=== PATIENT | male | born 1975 | race Caucasian/White ===

== ENCOUNTER 2016-08-01 15:45 | Emergency (ER) | payer MEDICAID ==
[2016-08-01 15:53] VITALS: BP 143/85
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
== END 2016-08-01 18:52 | disposition home or self-care (01) ==
LOC: ER 15:45
DX: S50.12XA Contusion of left forearm, initial encounter (principal); W20.8XXA Other cause of strike by thrown, projected or falling object, initial encounter; R03.0 Elevated blood-pressure reading, without diagnosis of hypertension
CPT/HCPCS: 99283

== ENCOUNTER 2019-11-24 23:34 | Emergency (ER) | payer SELFPAY ==
[2019-11-25 00:04] LABS: ABSOLUTE EOSINOPHILS # (AUTO) 0.3 10^3/uL (0.0-0.6); ABSOLUTE LYMPHOCYTES (AUTO) 2.5 10^3/uL (0.5-4.7); ABSOLUTE MONOCYTES (AUTO) 0.8 10^3/uL (0.1-1.4); BASOPHILS % (AUTO) 0.3 % (0-2); EOSINOPHILS % (AUTO) 2.2 % (0-6); HEMATOCRIT 42.8 % (37.9-51.0); HEMOGLOBIN 14.6 g/dL (13.5-17.0); LYMPHOCYTES % (AUTO) 20.2 % (13-45); MEAN CORPUSCULAR HEMOGLOBIN 31.2 pg (27.0-33.4); MEAN CORPUSCULAR HGB CONC 34.1 g/dL (32.0-36.0); MEAN CORPUSCULAR VOLUME 92 fl (80-97); PLATELET COUNT 201 10^3/uL (150-450); RED BLOOD COUNT 4.67 10^6/uL (4.35-5.55); RED CELL DISTRIBUTION WIDTH 13.6 % (11.5-14.0); SEGMENTED NEUTROPHILS % (AUTO) 71.3 % (42-78); TOTAL CELLS COUNTED % (AUTO) 100 %; WHITE BLOOD COUNT 12.6 10^3/uL (4.0-10.5)
--- NOTE | 2019-11-25 00:11 | ER Document Report ---
ED General - General Chief Complaint: Overdose Stated Complaint: PT INGESTED HEROIN Time Seen by Provider: 11/25/19 00:08 Mode of Arrival: Ambulatory Information source: Patient Notes: 44-year-old male arrives by EMS after decreased LOC and saturation in the 80s. Patient was given Narcan SHOT FIREMAN by EMS. Patient now doing well and asking for water. 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 Patient rides motorcycles for relaxation. 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 He does admit to using heroin and did so tonight. He reports this was something he periodically is known for. Patient now is doing well after the Narcan and has no problems swallowing breathing thinking. He moves all extremities well. He denies any fever chills cough or cold coronavirus exposure. TRAVEL OUTSIDE OF THE [place] IN LAST 30 DAYS: No - HPI Onset: Just prior to arrival Onset/Duration: Sudden, Better Quality of pain: No pain Severity: None Pain Level: Denies Associated symptoms: None Exacerbated by: Denies Relieved by: Denies Similar symptoms previously: Yes Recently seen / treated by doctor: No - Related Data Allergies/Adverse Reactions: No Known Allergies Allergy (Verified 11/24/19 23:49) Past Medical History - General Information source: Patient, Emergency Med Personnel - Social History Smoking Status: Current Every Day Smoker Cigarette use (# per day): Yes Chew tobacco use (# tins/day): No Smoking Education Provided: Yes Frequency of alcohol use: None Drug Abuse: Heroin, Marijuana Lives with: Family Family History: None, Reviewed & Not Pertinent Patient has suicidal ideation: No Patient has homicidal ideation: No Renal/ Medical History: Denies: Hx Peritoneal Dialysis Past Surgical History: Reports: Hx Orthopedic Surgery - L rotator cuff shoulder - Immunizations Immunizations up to date: No - tetanus ordered Hx Diphtheria, Pertussis, Tetanus Vaccination: No Review of Systems - Review of Systems Constitutional: See HPI, Weakness EENT: No symptoms reported Cardiovascular: No symptoms reported Respiratory: No symptoms reported Gastrointestinal: No symptoms reported Genitourinary: No symptoms reported Male Genitourinary: No symptoms reported Musculoskeletal: No symptoms reported Skin: No symptoms reported Hematologic/Lymphatic: No symptoms reported Neurological/Psychological: No symptoms reported Physical Exam - Vital signs Vitals: Temp Resp BP Pulse Ox 97.4 F 11 L 137/91 H 92 11/24/19 23:39 11/24/19 23:39 11/24/19 23:39 11/24/19 23:39 Interpretation: Normal - General General appearance: Appears well - HEENT Head: Normocephalic - ., Atraumatic Eyes: Normal Pupils: PERRL Mouth/Lips: Normal Mucous membranes: Normal Pharynx: Normal Neck: Normal - Respiratory Respiratory status: No respiratory distress Chest status: Nontender Breath sounds: Normal Chest palpation: Normal - Cardiovascular Rhythm: Regular Heart sounds: Normal auscultation Murmur: No - Abdominal Inspection: Normal Distension: No distension Bowel sounds: Normal Tenderness: Nontender Organomegaly: No organomegaly - Rectal Prostate: Other - deferred - Genitourinary Scrotum: Other - deferrred - Back Back: Normal - Extremities General upper extremity: Normal inspection General lower extremity: Normal inspection - Neurological Neuro grossly intact: Yes Cognition: Normal Orientation: AAOx4 Rafi Coma Scale Eye Opening: Spontaneous Rafi Coma Scale Verbal: Oriented [place] Coma Scale Motor: Obeys Commands [place] Coma Scale Total: 15 Speech: Normal Motor strength normal: LUE, RUE, LLE, RLE Sensory: Normal - Psychological Associated symptoms: Normal affect - Skin Skin Temperature: Warm Skin Moisture: Dry - Which 1 was in the had abscesses or culture: Auto Air Conditioning Installer had a finished Course - Vital Signs Vital signs: Temp Pulse Resp BP Pulse Ox 98.9 F 94 18 154/82 H 95 11/25/19 06:35 11/25/19 06:35 11/25/19 06:35 11/25/19 06:35 11/25/19 06:35 - Laboratory Result Diagrams: 11/24/19 23:43 11/24/19 23:43 Laboratory results interpreted by me: 11/24/19 11/24/19 23:43 23:43 WBC 12.6 H Absolute Neuts (auto) 9.0 H Carbon Dioxide 31 H Glucose 120 H Critical Care Note - Critical Care Note Comments: Patient now doing well after Narcan after doing heroin tonight. Discharge - Discharge Clinical Impression: Heroin overdose Qualifiers: Encounter type: initial encounter Injury intent: accidental or unintentional Qualified Code(s): T40.1X1A - Poisoning by heroin, accidental (unintentional), initial encounter Condition: Good Disposition: HOME, SELF-CARE Additional Instructions: Follow-up with personal doctor try to avoid any mind altering medications like heroin. Also try to quit smoking if possible. Return to ER as needed. Encourage fluids
[2019-11-25 00:21] LABS: ALKALINE PHOSPHATASE 81 U/L (38-126); ASPARTATE AMINO TRANSFERASE 28 U/L (17-59); BILIRUBIN,TOTAL 0.3 mg/dL (0.2-1.3); BLOOD UREA NITROGEN 17 mg/dL (7-20); CALCIUM 9.1 mg/dL (8.4-10.2); CARBON DIOXIDE 31 mmol/L (22-30); CHLORIDE 103 mmol/L (98-107); GLUCOSE 120 mg/dL (75-110); POTASSIUM 4.6 mmol/L (3.6-5.0); TOTAL PROTEIN 6.7 g/dL (6.3-8.2)
[2019-11-25 00:28] LABS: ANION GAP 5 (5-19)
[2019-11-25 06:45] VITALS: BP 187/99
== END 2019-11-25 06:45 | disposition home or self-care (01) ==
LOC: ER 23:34
DX: T40.1X1A Poisoning by heroin, accidental (unintentional), initial encounter (principal); F17.210 Nicotine dependence, cigarettes, uncomplicated; R53.1 Weakness
CPT/HCPCS: 36415; 80053; 85025; 99284

== ENCOUNTER 2019-12-23 12:42 | Emergency (ER) | payer OTHER ==
[2019-12-23 12:50] VITALS: BP 127/74
[2019-12-23] MEDS ORDERED: DIPH/PERTUSS(ACELL)/TETANUS VAC/PF 0.5 ML SYR (>=10YO) IM ONE (12:58)
[2019-12-23] MEDS ORDERED: HYDROCODONE/ACETAMINOPHEN 5-325 MG TABLET PO ONE (13:00)
--- NOTE | 2019-12-23 13:06 | ER Document Report ---
ED Medical Screen (RME) - General Stated Complaint: FINGER LACERATION Time Seen by Provider: 12/23/19 12:54 TRAVEL OUTSIDE OF THE [place] IN LAST 30 DAYS: No - HPI Notes: 12/23/19 12:59 44-year-old male presents emergency room for evaluation to laceration to his right second and third finger after he cut himself on a metal measuring tape as it slipped back and cut his skin. Unsure of his last tetanus. Bleeding is somewhat controlled. Reports tenderness with flexion extension of his fingers. Denies any fevers or chills. Worse with movement, better at rest. States he applied direct pressure with some relief. Denies any prior injury to his fingers. No [id number]-fmb-[id number] medications have been tried I have greeted and performed a rapid initial assessment of this patient. A comprehensive ED assessment and evaluation of the patient, analysis of test results and completion of the medical decision making process will be conducted by additional ED providers. PHYSICAL EXAMINATION: GENERAL: Well-appearing, well-nourished and in no acute distress. SKIN: Warm, Dry, normal turgor, no rashes or lesions noted. Right volar aspect of third phalange with laceration over PIP and a "V", right volar aspect of second finger with an irregular laceration to the dorsal aspect. Account Resolution Specialist +2 bilaterally, equally. Cap refill less than 3 seconds - Related Data Allergies/Adverse Reactions: No Known Allergies Allergy (Verified 12/23/19 12:55) Past Medical History Renal/ Medical History: Denies: Hx Peritoneal Dialysis Past Surgical History: Reports: Hx Orthopedic Surgery - L rotator cuff shoulder - Immunizations Immunizations up to date: No - tetanus ordered Hx Diphtheria, Pertussis, Tetanus Vaccination: No Physical Exam - Vital signs Vitals: Temp Pulse Resp BP Pulse Ox 98.7 F 74 18 127/74 H 96 12/23/19 12:48 12/23/19 12:48 12/23/19 12:48 12/23/19 12:48 12/23/19 12:48 Course - Vital Signs Vital signs: Temp Pulse Resp BP Pulse Ox 98.7 F 74 18 127/74 H 96 12/23/19 12:48 12/23/19 12:48 12/23/19 12:48 12/23/19 12:48 12/23/19 12:48
--- NOTE | 2019-12-23 13:24 | RADIOLOGY REPORT (SQ) ---
EXAM DESCRIPTION: HAND RIGHT 3 VIEWS IMAGES COMPLETED DATE/TIME: 12/23/2019 1:12 pm REASON FOR STUDY: lac to 2nd and 3rd finger COMPARISON: None. EXAM PARAMETERS: NUMBER OF VIEWS: Three views. TECHNIQUE: AP, lateral and oblique radiographic images acquired of the right hand. LIMITATIONS: None. FINDINGS: MINERALIZATION: Normal. BONES: No acute fracture or dislocation. JOINTS: No effusions. SOFT TISSUES: No soft tissue swelling or radiopaque foreign body. OTHER: No other finding. IMPRESSION: No acute osseous abnormality of the right hand. TECHNICAL DOCUMENTATION: JOB ID: [id number] [employer]- All Rights Reserved Reading location - IP/workstation name: [email or web address]
[2019-12-23] MEDS ORDERED: LIDOCAINE 1% INJ-PF (10 MG/ML) 30 ML SDV ONE (14:46)
--- NOTE | 2019-12-23 14:51 | ER Document Report ---
HPI - HPI Time Seen by Provider: 12/23/19 12:54 Pain Level: 3 Notes: 44-year-old male patient presents emergency department chief complaint of laceration to his second and third fingers on the right hand. He states this occurred just prior to arrival when handling a metal tape measure. He is unsure when his last tetanus shot was. There is no active bleeding at the time of my initial evaluation. He has normal sensation, range of motion and strength. - ROS Systems Reviewed and Negative: Yes All other systems reviewed and negative - CONSTITUTIONAL Constitutional: DENIES: Fever, Chills - REPRODUCTIVE Reproductive: DENIES: : - DERM Skin Problems: Laceration Past Medical History - General Information source: Patient - Social History Smoking Status: Current Every Day Smoker Chew tobacco use (# tins/day): No Frequency of alcohol use: None Drug Abuse: None Family History: None, Reviewed & Not Pertinent Patient has homicidal ideation: No - Medical History Medical History: Negative Renal/ Medical History: Denies: Hx Peritoneal Dialysis Past Surgical History: Reports: Hx Abdominal Surgery - left inquinal hernia, Hx Nose Surgery - deviated septum, Hx Orthopedic Surgery - L rotator cuff shoulder - Immunizations Immunizations up to date: No - tetanus ordered Hx Diphtheria, Pertussis, Tetanus Vaccination: No Vertical Provider Document - CONSTITUTIONAL Notes: PHYSICAL EXAMINATION: GENERAL: Well-appearing, well-nourished and in no acute distress. HEAD: Atraumatic, normocephalic. EYES: Pupils equal round extraocular movements intact, conjunctiva are normal. ENT: Nares patent NECK: Normal range of motion LUNGS: No respiratory distress Musculoskeletal: Normal range of motion NEUROLOGICAL: Normal speech, normal gait. PSYCH: Normal mood, normal affect. SKIN: 2 lacerations noted to patient's right fingers. Laceration #1 is located on the volar aspect of the third phalange with a 1 cm laceration over the PIP. Laceration #2 is located to the right second phalange on the dorsal aspect, this also measures 1 cm. - INFECTION CONTROL TRAVEL OUTSIDE OF THE [place] IN LAST 30 DAYS: No Course - Re-evaluation Re-evalutation: Lacerations repaired under sterile technique, patient tolerated well. Tetanus updated. Patient will be started on antibiotics to prevent infection. ED return precautions discussed, patient verbalized understanding and agreement with plan. - Vital Signs Vital signs: Temp Pulse Resp BP Pulse Ox 98.7 F 74 18 127/74 H 96 12/23/19 12:48 12/23/19 12:48 12/23/19 12:48 12/23/19 12:48 12/23/19 12:48 Procedures - Laceration/Wound Repair Right 3rd digit Wound length (cm): 1 Wound's Depth, Shape: Superficial Laceration pre-procedure: Sterile PPE donned Anesthetic type: 1% Lidocaine Wound Repaired With: Sutures Suture Size/Type: 5:0, 4:0 Number of Sutures: 2 Post-procedure wound care: Sterile dressing applied, Splint applied Post-procedure NV exam normal: Yes Complications: No Right 2nd digit Wound length (cm): 1 Wound's Depth, Shape: Superficial Laceration pre-procedure: Sterile PPE donned Anesthetic type: 1% Lidocaine Wound Repaired With: Sutures Suture Size/Type: 4:0 Number of Sutures: 2 Post-procedure NV exam normal: Yes Complications: No Discharge - Discharge Clinical Impression: Laceration Condition: Stable Disposition: HOME, SELF-CARE Additional Instructions: Laceration Care Your laceration has been sutured to keep the skin edges aligned during healing. The time of suture removal depends on the nature and location of your cut. Please follow the care instructions the doctor has outlined for you and return for further care, according to the schedule you've been given. Keep the wound and dressing clean. Unless you were told otherwise, you may shower daily, blotting the wound dry with a clean, unused towel. At other times, If the dressing gets wet or blood soaked, remove it and blot the wound dry, then reapply a new dressing. Unless you were instructed otherwise, dressings should be changed at least daily. If any signs of infection occur (swelling, redness, increasing tenderness, red streaks, tender lumps in the armpit or groin above the laceration, or fever), see the doctor immediately. Please return to the emergency department or your primary care provider in 8-10 days for suture removal. Please return earlier if you develop any signs of infection such as increased redness, swelling, foul-smelling drainage or fever. Prescriptions: Cephalexin [Keflex] 500 mg PO BID #10 capsule
== END 2019-12-23 15:30 | disposition home or self-care (01) ==
LOC: ER 12:42
PROC: 0HQFXZZ Repair Right Hand Skin, External Approach (ICD-10-PCS; principal; 2019-12-23)
DX: S61.218A Laceration without foreign body of other finger without damage to nail, initial encounter (principal); W45.8XXA Other foreign body or object entering through skin, initial encounter; F17.200 Nicotine dependence, unspecified, uncomplicated
CPT/HCPCS: 90471; 90715; 99283